=== PATIENT | female | born 2000 | race Caucasian/White ===

== ENCOUNTER 2021-01-16 00:32 | Emergency (ER) | payer SELFPAY ==
[~2021-01-16] VITALS: Ht 160 cm; Wt 55.5 kg
[2021-01-16 01:11] LABS: CLARITY URINE CLEAR (CLEAR); COLOR URINE YELLOW (YELLOW); KETONES URINE NEGATIVE (NEGATIVE); LEUKOCYTE ESTERASE URINE NEGATIVE (NEGATIVE); NITRITE URINE NEGATIVE (NEGATIVE); OCCULT BLOOD URINE NEGATIVE (NEGATIVE); PH URINE 8.5 (4.5-8.0); PROTEIN URINE NEGATIVE (NEGATIVE); SPECIFIC GRAVITY URINE 1.019 (1.005-1.030); UROBILINOGEN URINE 0.2 E.U./dL (0.2-1.0)
[2021-01-16] MEDS ORDERED: VISCOUS LIDOCAINE 2% 15 ML UDC MM PRN (02:45)
[2021-01-16] MEDS ORDERED: FAMOTIDINE 20MG TABLET PO ONE (02:45)
[2021-01-16 03:19] LABS: BASOPHILS % 0.6 % (0.0-2.0); EOSINOPHILS % 1.6 % (0.0-5.0); HEMATOCRIT. 37.8 % (36.0-48.0); HEMOGLOBIN. 12.4 g/dL (12.0-16.0); LYMPHOCYTES % 45.9 % (20.0-50.0); MEAN CORPUSCULAR HEMOGLOBIN 29.1 pg (28.0-32.0); MEAN CORPUSCULAR VOLUME 88.6 fL (81.0-99.0); MEAN PLATELET VOLUME 7.5 fl (7.4-10.4); MONOCYTES % 8.5 % (2.0-8.0); NEUTROPHILS % 43.4 % (40.0-76.0); PLATELET 214 x1000/uL (130-400); RED BLOOD CELL COUNT 4.27 mill/uL (4.2-5.4); RED CELL DISTRIBUTION WIDTH 13.6 % (11.6-14.6)
[2021-01-16 03:20] LABS: CHLORIDE 110 mEq/L (98-107)
[2021-01-16] MEDS ORDERED: FAMO-135 MT (03:45)
[2021-01-16] MEDS ORDERED: MAG-55 MT (03:45)
[2021-01-16 04:26] VITALS: BP 114/62
== END 2021-01-16 04:30 | disposition home or self-care (01) ==
LOC: ER 00:32
DX: K21.9 Gastro-esophageal reflux disease without esophagitis (principal)
CPT/HCPCS: 36415; 80053; 81003; 81025; 85025; 93005; 99284